=== PATIENT | male | born 1960 | race Caucasian/White ===

== ENCOUNTER 2017-11-01 02:40 | Emergency (ER) | payer BC ==
[~2017-11-01] VITALS: Ht 190.5 cm; Wt 108.9 kg
[2017-11-01 02:47] VITALS: BP_SYST 172
--- NOTE | 2017-11-01 02:51 | NUR ---
Placed in room 04 . Side rails up. Report given to ÁNGEL Salinas.
--- NOTE | 2017-11-01 02:52 | NUR ---
Patient AAOx3, ambulatory. Patient states having pain to left wrist with pain scale 8/10 for approximately 1 day prior to ER visit. Patient states onset of pain was sudden, states having pain when attempting to rotate his wrist. Patient also states that pain "keeps him from falling asleep at night". Patient states pain is an aching sensation that does not radiate. Patient denies any mechanism of injury. Patient denies any other complaints.
--- NOTE | 2017-11-01 03:10 | NUR ---
ER Dr. Molina at bedside examining patient.
[2017-11-01] MEDS ORDERED: KETOROLAC TROMETHAMINE 60 MG/2 ML VIAL IM ONE (03:15)
[2017-11-01 03:40] VITALS: BP_SYST 168
--- NOTE | 2017-11-01 03:40 | NUR ---
Patient given written and verbal discharge instructions and verbalizes understanding. ER MD discussed with patient the results and treatment provided. Patient in stable condition. ID arm band removed. Rx of indocin given. Patient educated on pain management and to follow up with PMD. Pain Scale 0/10. Opportunity for questions provided and answered.
== END 2017-11-01 03:40 | disposition home or self-care (01) ==
LOC: SED 02:40
DX: M10.9 Gout, unspecified (principal)
CPT/HCPCS: 96372; 99283; J1885

== ENCOUNTER 2022-06-01 18:31 | Emergency (ER) | payer BC, OTHER ==
[~2022-06-01] VITALS: Ht 190.5 cm; Wt 106.6 kg
[2022-06-01 18:31] VITALS: BP_SYST 124
--- NOTE | 2022-06-01 18:31 | NUR ---
Patient triaged and placed in waiting room. VSS and patient appears in no acute distress at this time. Accompanied by SPOUSE, awaiting available bed, and MD notified of need for MSE.
--- NOTE | 2022-06-01 19:17 | NUR ---
ER examining patient in the triage room.
--- NOTE | 2022-06-01 19:39 | NUR ---
Placed in room 3 . Placed on property assessment monitor, blood pressure machine and pulse oximeter. To gown for exam. Side rails up. Report given to NARESH NEAL (REG).
[2022-06-01 19:42] LABS: BASOPHILS % (AUTO) 0.7 % (0.0-2.0); EOSINOPHILS % (AUTO) 0.5 % (0.0-4.0); HEMATOCRIT 42.8 % (36-54); HEMOGLOBIN 14.8 g/dL (14.0-18.0); LYMPHOCYTES # (AUTO) 1.9 K/uL (1.0-5.5); LYMPHOCYTES % (AUTO) 28.6 % (20.5-51.5); MEAN CORPUSCULAR HEMOGLOBIN 30 pg (27-31); MEAN CORPUSCULAR HGB CONC 35 % (32-36); MEAN CORPUSCULAR VOLUME 87 fL (79.0-98.0); MONOCYTES # (AUTO) 0.6 K/uL (0.0-1.0); MONOCYTES % (AUTO) 8.6 % (1.7-9.3); NEUTROPHILS % (AUTO) 61.6 % (40.0-70.0); PLATELET COUNT (AUTO) 154 K/uL (130-430); RED CELL DISTRIBUTION WIDTH 13.6 % (9.0-15.0); WHITE BLOOD COUNT (AUTO) 6.5 K/uL (4.8-10.8)
[2022-06-01 20:17] LABS: ANION GAP 6 (5-15); CALCIUM 8.7 mg/dL (8.4-11.0); CHLORIDE 107 mmol/L (98-107); CREATININE 1.19 mg/dL (0.55-1.30); GLUCOSE 116 mg/dL (70-99); POTASSIUM 3.7 mmol/L (3.5-5.1); SODIUM SERUM 140 mmol/L (136-145); UREA NITROGEN, BLOOD 27 mg/dL (8-21)
[2022-06-01 20:31] LABS: ALANINE AMINOTRANSFERASE 48 U/L (12-78); ALBUMIN 3.8 g/dL (3.4-4.8); ASPARTATE AMINOTRANSFERASE 24 U/L (10-37); TOTAL BILIRUBIN 0.7 mg/dL (0.0-1.0)
[2022-06-01 20:34] LABS: GFR AFRICAN AMERICAN 80 mL/min (>90)
[2022-06-01 21:40] VITALS: BP_SYST 138
== END 2022-06-01 21:40 | disposition home or self-care (01) ==
LOC: SED 18:31
DX: R53.1 Weakness (principal); Z79.899 Other long term (current) drug therapy
CPT/HCPCS: 36415; 80053; 84484; 85025; 93005; 99284

== ENCOUNTER 2023-01-30 04:18 | Inpatient (IN) | payer BC, OTHER ==
[2023-01-30] VITALS (8 sets, daily range): BP systolic 105–128
[~2023-01-30] VITALS: Ht 177.8 cm; Wt 81.6 kg
--- NOTE | 2023-01-30 04:33 | NUR ---
Placed in room 1 . Placed on residential monitor, blood pressure machine and pulse oximeter. To gown for exam. Side rails up. Report given to FELA NEAL.
--- NOTE | 2023-01-30 04:40 | NUR ---
MADE AWARE OF HR IN THE 160S, AWAITING NEW ORDERS.
[2023-01-30] MEDS ORDERED: ADENOSINE 6MG/2ML VIAL IVP ONE ×3 (04:45→05:15)
--- NOTE | 2023-01-30 04:50 | NUR ---
DR. ROSENBERG AT BEDSIDE WITH PATIENT FOR MSE.
--- NOTE | 2023-01-30 04:53 | NUR ---
BLOOD COLLECTED AND SENT TO LAB.
--- NOTE | 2023-01-30 04:56 | NUR ---
PT FROM HOME WITH C/O OF CHEST PAIN AND RAPID HR. PT REPORTS THAT CHEST PAIN STARTED WHEN HE WOKE UP AT 0300 AND HIS WATCH READ THAT HIS HEART RATE WAS IN THE 160S. PT STATES CP IS 0/10, MEDIAL RADIATING TO THE LEFT SHOULDER. PT AMBULATORY, A&O X4 AND FOLLOWING COMMANDS.
[2023-01-30] MEDS ORDERED: NS 500 ML IV ONE (05:15)
[2023-01-30] MEDS ORDERED: dilTIAZem HCL IVP 5 MG/ML VIAL IVP ONE (05:30)
[2023-01-30 05:32] LABS: BASOPHILS % (AUTO) 0.6 % (0.0-2.0); EOSINOPHILS % (AUTO) 0.5 % (0.0-4.0); HEMATOCRIT 49.4 % (36-54); HEMOGLOBIN 17.2 g/dL (14.0-18.0); LYMPHOCYTES # (AUTO) 2.1 K/uL (1.0-5.5); LYMPHOCYTES % (AUTO) 29.2 % (20.5-51.5); MEAN CORPUSCULAR HEMOGLOBIN 30 pg (27-31); MEAN CORPUSCULAR HGB CONC 35 % (32-36); MEAN CORPUSCULAR VOLUME 86 fL (79.0-98.0); MONOCYTES # (AUTO) 0.6 K/uL (0.0-1.0); NEUTROPHILS # (AUTO) 4.3 K/uL (1.8-7.7); NEUTROPHILS % (AUTO) 60.7 % (40.0-70.0); PLATELET COUNT (AUTO) 173 K/uL (130-430); RED BLOOD CELL COUNT(AUTO) 5.74 MIL/uL (4.2-6.2); RED CELL DISTRIBUTION WIDTH 13.4 % (9.0-15.0); WHITE BLOOD COUNT (AUTO) 7.2 K/uL (4.8-10.8)
--- NOTE | 2023-01-30 05:55 | NUR ---
MD MADE AWARE OF BP OF 97/60 BEFORE ADMINISTERING CARDIZEM DRIP.
[2023-01-30] MEDS ORDERED: ASPI-1393 PO (05:57)
[2023-01-30] MEDS ORDERED: GINK120C PO (05:57)
[2023-01-30] MEDS ORDERED: SAW160CA3 PO (05:57)
[2023-01-30] MEDS ORDERED: LOSA25TA3 PO (05:57)
[2023-01-30] MEDS ORDERED: LIP80 PO (05:57)
--- NOTE | 2023-01-30 05:59 | NUR ---
Medication reconciliation completed with information provided by pt at the bedside. Any prior medication reconciliation on file was reviewed and corrected.
--- NOTE | 2023-01-30 05:59 | NUR ---
Admit bed requested Patient will be admitted to care of . Admitted to icu unit. Diagnosis Arrhytmia Inpatient (Yes or No) yes Observation (Yes or No) no Orientation concerns or request close to nursing station (Yes or No) no Covid Status pending On vent or bipap no Isolation requirements no Needs a sitter no From Home (Yes or if No enter name of facility) yes Requires Dialysis (Yes or No) no Med Rec Completed (Yes of No) yes
--- NOTE | 2023-01-30 06:05 | NUR ---
REQUESTED DR. ROSENBERG FOR ASPRIN ORDER, AWAITING NEW ORDERS.
[2023-01-30 06:12] LABS: ALANINE AMINOTRANSFERASE 37 U/L (12-78); ALBUMIN 4.2 g/dL (3.4-4.8); ANION GAP 7 (5-15); ASPARTATE AMINOTRANSFERASE 20 U/L (10-37); CALCIUM 9.2 mg/dL (8.4-11.0); CHLORIDE 101 mmol/L (98-107); CREATININE 1.19 mg/dL (0.55-1.30); GFR AFRICAN AMERICAN 80 mL/min (>90); GLUCOSE 113 mg/dL (70-99); TOTAL BILIRUBIN 0.6 mg/dL (0.0-1.0); UREA NITROGEN, BLOOD 19 mg/dL (8-21)
--- NOTE | 2023-01-30 06:17 | NUR ---
MRSA swab done.Specimen sent to the lab.
[2023-01-30] MEDS ORDERED: ASPIRIN 325 MG TABLET PO ONE (06:30)
--- NOTE | 2023-01-30 06:32 | NUR ---
PT USING BEDSIDE COMMODE, PT REMAINS ON MONITOR.
--- NOTE | 2023-01-30 06:35 | NUR ---
PT BACK IN BED WITH EASE, CONNECTED TO CARDIO CLINICIAN.
--- NOTE | 2023-01-30 06:45 | NUR ---
PT STARTED ON CARDIZEM DRIP. PT STARTED AT 5MG DUE TO BP BEING 114/81. MD MADE AWARE AND OKAYED.
--- NOTE | 2023-01-30 07:00 | NUR ---
PT CARDIZEM DRIP TITRATED TO 10MG.
--- NOTE | 2023-01-30 07:26 | NUR ---
REPORT GIVEN TO ÁNGEL URENA TO ASSUME CARE.
--- NOTE | 2023-01-30 07:30 | NUR ---
RECEIVED PT FROM ÁNGEL CHAHAL. PT IS AAOX4. ON R/A. DENIES N/V/D/C. DISTAL PULSES NORMAL, SKIN WARM, CDI, NO PERIPHERAL EDEMA. PT HAS IV CATH 20 TO LH S/L. IV CATH TO RAC 18G WITH CARDIZEM RUNNING AT 10MG/HOUR. HR TRENDING IN THE 110S. DENIES PAIN. AT BEDSIDE. SIDERAILS UP X2.
[2023-01-30] MEDS ORDERED: MAGNESIUM SULFATE 50 ML IV PRN (07:45)
[2023-01-30] MEDS ORDERED: NALOXONE HCL 0.4 MG/ML AMP (NARCAN) IVP PRN ×2 (07:45)
[2023-01-30] MEDS ORDERED: ACETAMINOPHEN 325 MG TABLET PO PRN (07:45)
[2023-01-30] MEDS ORDERED: MORPHINE 2 MG/ML INJ. SYRINGE IVP PRN ×2 (07:45)
[2023-01-30] MEDS ORDERED: DOCUSATE SODIUM 100 MG CAPSULE PO PRN (07:45)
[2023-01-30] MEDS ORDERED: LORazepam 2 MG/ML VIAL IVP PRN (07:45)
[2023-01-30] MEDS ORDERED: ONDANSETRON HCL 4 MG/2 ML VIAL IVP PRN (07:45)
[2023-01-30] MEDS ORDERED: MUPIROCIN 2% TOPICAL OINTMENT 22 GM NS PRN (07:45)
[2023-01-30] MEDS ORDERED: POTASSIUM CHLORIDE 20 MEQ TAB.PRT.SR PO PRN (07:45)
--- NOTE | 2023-01-30 08:45 | NUR ---
RECEIVED PT FROM ER FOR CP/SVT. PT AAOX4, IN NAD. RESP EVEN AND UNLABORED, PT PLACED ON SLAG DUMPER-RATE OF 51, WAS ON CARDIZEM DRIP VIA PUMP, IMMEDIATELY STOPPED. PT DENIES ANY CP OR PALPITATIONS. DENIES ANY SOB, ON RA @98%. SKIN W/D/I. IV-PATENT TO RT AC. PT ORIENTED ROOM AND PLAN OF CARE, CALL LIGHT WITHIN REACH. WATER PROVIDED AND BELONGINGS (PHONE) CLOSE TO PT. DR MAI PAGED TO INFORM ABOUT HEART RATE AND THAT CARDIZEM DRIP WAS STOPPED. SAFETY PRECAUTIONS IN PLACE, WILL CONT TO MONITOR.
--- NOTE | 2023-01-30 08:49 | NUR ---
PT'S HR DECREASED TO 50S, CARDIZEM DRIP TURNED OFF, RECEIVING NURSE LAURA MADE AWARE. Patient will be admitted to care of ÁNGEL SANCHEZ. Admitted to ICU unit. Will go to room 4. Belongings list completed. Complete and up to date summary report printed. SBAR report to be given at bedside with opportunity for questions.
--- NOTE | 2023-01-30 08:55 | NUR ---
DR MAI IN ROOM FOR EXAM. UPDATED ON STATUS AND THAT CARDIZEM DRIP WAS STOPPED. VERBALIZED UNDERSTADING AND STATES SHE HAS ADDED DR BENDER TO CASE ([employer]).
--- NOTE | 2023-01-30 09:02 | NUR ---
PT REQUESTING TO GET UP TO USE BATHROOM, REFUSING URINAL AND BEDPAN. CN NOTIFIED. PT USED TOILET IN ROOM WELL. HOOKED BACK UP TO MONITOR, TOLERATED WELL.
--- NOTE | 2023-01-30 09:16 | NUR ---
DR BENDER IN ROOM FOR EXAM, UPDATED ON STATUS AND HISTORY, NO VERBAL ORDERS RECEIVED. AWARE THAT CARDIZEM DRIP WAS STOPPED, WILL CONT TO MONITOR CLOSELY.
[2023-01-30] MEDS ORDERED: POTASSIUM CHLORIDE 20 MEQ TAB.PRT.SR PO ONE (09:45)
[2023-01-30] MEDS: HEPARIN SODIUM,PORCINE 5,000 UNITS/ML VIAL SUBCUT SCH ×2 (10:13→20:48)
[2023-01-30] MEDS: ATORVASTATIN 20 MG TABLET PO SCH (10:13)
[2023-01-30] MEDS: ASPIRIN 81 MG TABLET(ECOTRIN) PO SCH (10:13)
--- NOTE | 2023-01-30 11:55 | NUR ---
DR BENDER INFORMED OF CRITICAL TROPONIN -386, NO NEW ORDERS RECEIVED.
--- NOTE | 2023-01-30 16:00 | NUR ---
Afternoon Nurse Notes: Patient laying in bed with laptop open. Patient breathing even and unlabored on room air. No pain, no distress, no SOB. Bed is locked in lowest position. Call light within reach, all needs met, will continue with plan of care.
--- NOTE | 2023-01-30 16:40 | NUR ---
Transfer Nurse Notes: Patient laying in bed with. A/O x 4, [place] speaking. Patient breathing even and unlabored on room air. No pain, no distress, no SOB. Patient is on a regular diet. Patient has LH 22g Saline lock. Bed is locked in lowest position. Call light within reach, all needs met, will continue with plan of care.
--- NOTE | 2023-01-30 18:35 | NUR ---
Closing Shift Nurse Notes: Patient laying in bed with laptop open in lap. and friend at bedside. Patient breathing even and unlabored on room air. No pain, no distress, no SOB. Bed is locked in lowest position. Call light within reach, all needs met, evening report to be given to security shift manager soon.
[2023-01-30] MEDS: DILTIAZEM HCL 60 MG TABLET PO SCH (20:44)
[2023-01-31] VITALS: BP_SYST 129
[2023-01-31 06:14] LABS: BASOPHILS % (AUTO) 0.3 % (0.0-2.0); EOSINOPHILS % (AUTO) 0.5 % (0.0-4.0); HEMATOCRIT 44.4 % (36-54); HEMOGLOBIN 15.3 g/dL (14.0-18.0); LYMPHOCYTES # (AUTO) 1.9 K/uL (1.0-5.5); LYMPHOCYTES % (AUTO) 26.9 % (20.5-51.5); MEAN CORPUSCULAR HEMOGLOBIN 30 pg (27-31); MEAN CORPUSCULAR HGB CONC 34 % (32-36); MEAN CORPUSCULAR VOLUME 86 fL (79.0-98.0); MONOCYTES # (AUTO) 0.6 K/uL (0.0-1.0); MONOCYTES % (AUTO) 8.3 % (1.7-9.3); NEUTROPHILS # (AUTO) 4.4 K/uL (1.8-7.7); PLATELET COUNT (AUTO) 147 K/uL (130-430); RED BLOOD CELL COUNT(AUTO) 5.17 MIL/uL (4.2-6.2); RED CELL DISTRIBUTION WIDTH 13.2 % (9.0-15.0); WHITE BLOOD COUNT (AUTO) 6.9 K/uL (4.8-10.8)
[2023-01-31 06:44] LABS: ALBUMIN 3.3 g/dL (3.4-4.8); CALCIUM 8.5 mg/dL (8.4-11.0); CREATININE 0.95 mg/dL (0.55-1.30); THYROID STIMULATING HORMONE 1.4 uIu/mL (0.34-4.82); TOTAL BILIRUBIN 0.7 mg/dL (0.0-1.0)
[2023-01-31 08:02] VITALS: BP_SYST 145
[2023-01-31] MEDS ORDERED: DILT60TA3 PO (08:47)
[2023-01-31] MEDS: ASPIRIN 81 MG TABLET(ECOTRIN) PO SCH (09:56)
[2023-01-31] MEDS: ATORVASTATIN 20 MG TABLET PO SCH (09:56)
[2023-01-31] MEDS: DILTIAZEM HCL 60 MG TABLET PO SCH (09:56)
[2023-01-31] MEDS: HEPARIN SODIUM,PORCINE 5,000 UNITS/ML VIAL SUBCUT SCH (09:59)
[2023-01-31 10:03] VITALS: BP_SYST 145
--- NOTE | 2023-01-31 10:35 | NUR ---
D/C Patient to home, picked up by via personal vehicle. Patient's a/o x4, verbally responsive in no acute distress. Patient given medication reconciliation form and D/C instructions. Educated patient on the new medication, Dialtizem. Patient verbalized understanding. MD discussed with patient the results and treatment provided. Ambulatory with steady gait for discharge to home. Patient in stable condition, ID band removed. IV catheter removed, intact and dressing applied, no active bleeding. Rx of given. All belongings sent with patient. VSS, denies any chest pain or discomfort, no c/o palpitation.
== END 2023-01-31 10:45 | disposition home or self-care (01) | DRG 281 ==
LOC: SED 04:18 → SIC 05:48 → STU 17:00
PROVIDERS: ADMIT Family Medicine; ATTEND Family Medicine
DX: I21.4 Non-ST elevation (NSTEMI) myocardial infarction (principal); I47.1 Supraventricular tachycardia; E87.6 Hypokalemia; R74.01 Elevation of levels of liver transaminase levels; E78.5 Hyperlipidemia, unspecified; Z20.822 Contact with and (suspected) exposure to COVID-19; I25.10 Atherosclerotic heart disease of native coronary artery without angina pectoris; I10 Essential (primary) hypertension; Z87.891 Personal history of nicotine dependence; Z79.82 Long term (current) use of aspirin; Z79.899 Other long term (current) drug therapy
CPT/HCPCS: 36415; 71045; 80053; 80061; 83735; 83880; 84443; 84484; 85025; 87081; 93005; 93306; 96361; 96374; 96375; 99291; G0378; J0153; J1644; J3490; J7060